=== PATIENT | female | born 1935 | race African-American/Black ===

== ENCOUNTER → 2019-10-30 | Outpatient (CLI) | payer MEDICARE ==
[~2019-10-30] VITALS: Ht 160 cm; Wt 59.0 kg
[~2019-10-30] MED LIST: DALBAVANCIN HCL 1,500 MG in IV DEXTROSE 5% 500 ML IV ONE
[2019-10-30 15:53] VITALS: BP 190/77
--- NOTE | 2019-10-30 16:27 | NUR ---
IV INFUSION COMPLETE, IV FLUSHED WITH 20ML STERILE WATER PER PHARMACY. IV SITE WITHOUT ANY EDEMA, ERYTHEMA. PT ANDREA INFUSION WELL. NOW AWAITING DAUGHTER TO COME GET.
== END | disposition home or self-care (01) ==
LOC: OPS 14:33
PROVIDERS: ATTEND Internal Medicine Infectious Disease
DX: A41.01 Sepsis due to Methicillin susceptible Staphylococcus aureus (principal)
CPT/HCPCS: 96365; J0875; J7060; 36415; 96360